=== PATIENT | female | born 1960 ===

== ENCOUNTER 2019-10-04 07:26 | Emergency (ER) | payer OTHER ==
--- NOTE | 2019-10-04 07:35 | UC ---
Abdominal Pain Female HPI - HPI Summary HPI Summary: CHIEF COMPLAINT and HPI: This is a healthy 59-year-old female who is a fourth yearthat student who complains of lower abdominal pain, nonradiating, for 3 days. 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 She has straw-colored, diarrhea multiple times a day and tells me that this consistent with cryptosporidium. She also comes in with the appropriate FDA prescription. Description of Pain: Intensity: 7/10 Location: abdomen Radiation:nonradiating Type:, cramping Variation:, continuous. VITAL SIGNS & SaO2 REVIEWED. Within normal limits unless noted here. NURSES NOTE REVIEWED. 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 Diarrhea x 3 days. abdominal cramps" - History of Current Complaint Stated Complaint: ABDOMINAL COMPLAINT Time Seen by Provider: 10/04/19 07:33 Allergies/Adverse Reactions: Allergies Allergy/AdvReac Type Severity Reaction Status Date / Time No Known Allergies Allergy Verified 10/04/19 07:51 PMH/Surg Hx/FS Hx/Imm Hx - Additional Past Medical History Additional PMH: PAST MEDICAL HISTORY- CHRONIC and RECURRENT HEALTH PROBLEM LIST REVIEWED.status post appendectomy. Information relevant to present complaint: none VISIT HISTORY REVIEWED. MEDICATIONS & ALLERGIES REVIEWED. HYPERTENSION STATUS:. Sometimes the patient has elevated blood pressure, but not as high as the reading today. Patient is on no antihypertensive medications. FAMILY HISTORY: patient denies significant medical history for family. 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 Eyes: Conjunctiva are clear. Pupils are equal and reactive to light and accommodation. Extra ocular muscle movement is intact. ENT: The hearing is grossly normal, the pharynx is normal, and the TMs are normal. There is no muffled or hoarse voice. No stridor. Neck: The neck is supple and there is no lymphadenopathy. Respiratory: The chest is non-tender to palpation and without crepitus. The lungs are clear, there are normal breath sounds, and there is no respiratory distress. No wheezes, rales or rhonchi. Cardiovascular: Heart sounds reveal a regular rate and rhythm. There are no clicks, rubs or murmurs. There are no carotid bruits or thrills. Circulation is grossly intact. Abdomen: The abdomen is soft and moderately tender in the lower quadrants. There is no evidence of peritoneal signs or acute abdomen. There is no organomegaly. Bowel sounds are present and within normal limits. No point tenderness at McBurneys point. No CVA tenderness. Musculoskeletal: Strength is intact. The patient moves all extremities. Neurological: The patient is alert. Motor and sensory are examination grossly intact. Speech is normal. Psychological: The patient displays age appropriate behavior, and is conversant. GCS=15. Skin: Negative for rashes. 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 She has straw-colored , diarrhea multiple times a day and tells me that this consistent with cryptosporidium. She also comes in with the appropriate FDA prescription. physical examination shows mild to moderate cramping in the lower abdomen without evidence of peritoneal signs. I discussed the patient's blood pressure reading with her. I will prescribe medication for cryptosporidium and if this is ineffective. She will return and have her stool tested. She will also follow up on her hypertensive reading. - Differential Dx/Diagnosis Differential Diagnosis: Other - colitis Provider Diagnosis: Cryptosporidium exposure Discharge ED - Sign-Out/Discharge Documenting (check all that apply): Patient Departure All imaging exams completed and their final reports reviewed: No Studies - Discharge Plan Condition: Stable Disposition: HOME Prescriptions: Nitazoxanide [Alinia] 500 mg PO BID #6 tablet MDD 2 Patient Education Materials: Acute Diarrhea (ED) Referrals: No Primary Care Phys,NOPCP [Primary Care Provider] - Additional Instructions: WE DISCUSSED: PLEASE SEEK CARE AT THE EMERGENCY DEPARTMENT IF SYMPTOMS WORSEN OR IF NEW SYMPTOMS DEVELOP. FOLLOW UP WITH YOUR PRIMARY CARE PHYSICIAN IF CONDITION CONTINUES BEYOND 3 DAYS WITHOUT IMPROVEMENT. YOUR DIAGNOSIS IS: cryptosporidium YOUR PRESCRIPTION RECOMMENDATION IS: nitazoxanide (Alinia); twice a day for 3 days OTHER INSTRUCTIONS: Hypertension Discharge Instructions: Your blood pressure reading today was 153/95, indicating HYPERTENSION. Follow- up with your primary care provider within 4 weeks for blood pressure check and appropriate recommendations and treatment, as needed. FOR PAIN AND/OR SLEEP: For pain: Ibuprofen (Motrin and other brand names) 400-600mg PLUS acetaminophen (Tylenol and other brand names) 500mg - 1000mg every 8 hours. - Billing Disposition and Condition Condition: STABLE Disposition: Home
== END 2019-10-04 08:33 | disposition home or self-care (01) ==
LOC: UCEAST 07:26
DX: Z20.09 Contact with and (suspected) exposure to other intestinal infectious diseases (principal); R10.30 Lower abdominal pain, unspecified; R11.2 Nausea with vomiting, unspecified
CPT/HCPCS: 99202; G0463

== ENCOUNTER 2020-01-13 12:27 | Emergency (ER) | payer OTHER ==
[2020-01-13 12:38] VITALS: BP 154/93
--- NOTE | 2020-01-13 13:07 | UC ---
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 Patient states that she was examining the cat when it bit her. The cat was last vaccinated for rabies in 2013. The animal is able to be quarantined. Patient's tetanus is up- to-date and has been vaccinated for rabies with positive titers. Denies fever, chills, joint pain, drainage, decreased range of motion, numbness, or tingling. - History of Current Complaint Chief Complaint: UCBiteInjury Stated Complaint: CAT BITE Time Seen by Provider: 01/13/20 12:52 Hx Obtained From: Patient Pain Intensity: 0 - Allergies/Home Medications Allergies/Adverse Reactions: Allergies Allergy/AdvReac Type Severity Reaction Status Date / Time No Known Allergies Allergy Verified 01/13/20 12:38 Home Medications: Home Medications Amoxicillin/Clavulanate TAB* [Augmentin TAB 875*] 875 mg PO BID 5 Days #10 tab 01/13/20 [Rx] PMH/Surg Hx/FS Hx/Imm Hx Previously Healthy: Yes - Denies significant PMH - Surgical History Surgical History: Yes Surgery Procedure, Year, and Place: T &A - Family History Known Family History: Positive: Non-Contributory - Social History Occupation: Student Lives: With Family Alcohol Use: None Substance Use Type: None Smoking Status (MU): Never Smoked Tobacco - Immunization History Most Recent Tetanus Shot: 4 years ago Review of Systems All Other Systems Reviewed And Are Negative: Yes Constitutional: Negative: Fever, Chills Skin: Positive: Other - See HPI Respiratory: Positive: Negative Gastrointestinal: Positive: Negative Genitourinary: Positive: Negative Motor: Negative: Weakness Neurovascular: Negative: Decreased Sensation Musculoskeletal: Negative: Arthralgia, Decreased ROM Neurological/Mental Status: Positive: Negative Is Patient Immunocompromised?: No Physical Exam - Summary Physical Exam Summary: GENERAL APPEARANCE: Alert and cooperative overweight female appears to be in no acute distress. CARDIAC: Normal S1 and S2. No S3, S4 or murmurs. Rhythm is regular. There is no peripheral edema, cyanosis or pallor. Extremities are warm and well perfused. Capillary refill is less than 2 seconds. Peripheral pulses intact. LUNGS: Clear to auscultation without rales, rhonchi, wheezing or diminished breath sounds. ABDOMEN: Positive bowel sounds. Soft, nondistended, nontender. No guarding or rebound. No masses or hepatosplenomegally. MUSKULOSKELETAL: ROM intact to all extremities. No joint erythema or tenderness. Normal muscular development. Normal gait. EXTREMITIES: 2 puncture wounds with bleeding controlled to the dorsal web space between the thumb and index finger of the left hand with 2 more superficial puncture wounds to the proximal dorsal hand. Mild erythema and edema of the surrounding tissues. Circulation and sensation intact. SKIN: Skin normal color, texture and turgor. 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 Patient states that she was examining the cat when it bit her. The cat was last vaccinated for rabies in 2013. The animal is able to be quarantined. Patient's tetanus is up- to-date and has been vaccinated for rabies with positive titers. Denies fever, chills, joint pain, drainage, decreased range of motion, numbness, or tingling. Afebrile. Hypertensive otherwise vital signs stable. Patient had 2 puncture wounds with bleeding controlled to the dorsal web space between the thumb and index finger of the left hand with 2 more superficial puncture wounds to the proximal dorsal hand with mild erythema and edema of the surrounding tissues ( see diagram). The wounds were cleansed with soap and water, antibiotic ointment and a clean gauze dressing was applied by the RN. We'll place the patient on Augmentin 875 mg twice a day 5 days for infection prophylaxis. She is to follow up with hand surgery in 3-5 days if there is any complications. Anticipatory guidance, wound care, and warning symptoms were reviewed with the patient. Verbalizes understanding and agrees with plan of care. - Differential Dx/Diagnosis Differential Diagnosis/HQI/PQRI: Puncture, Rabies Exposure, Superficial Infection Provider Diagnosis: Cat bite of left hand Discharge ED - Sign-Out/Discharge Documenting (check all that apply): Patient Departure All imaging exams completed and their final reports reviewed: No Studies - Discharge Plan Condition: Stable Disposition: HOME Prescriptions: Amoxicillin/Clavulanate TAB* [Augmentin TAB 875*] 875 mg PO BID 5 Days #10 tab Patient Education Materials: Animal Bite (ED) Referrals: No Primary Care Phys,NOPCP [Primary Care Provider] - No Donohue MD [Medical Doctor] - 3 Days (Follow up in 3-5 days for recheck of wound especially if no improvement in symptoms.) Additional Instructions: Start Augmentin 875 mg 1 tablet twice daily for 5 days to help prevent infection. Clean the wound with a mild soap and water at least once a day. Apply some antibiotic ointment and cover with a bandage. This should be changed at least once a day or any time the dressing becomes wet or soiled. Use acetaminophen (Tylenol) or ibuprofen (Advil, Motrin) according to directions as needed for pain. Watch for signs of infection including fever greater than 100.5 F, severe pain not managed with pain medication, redness that spreads, swelling of the hand/ fingers, red streaking up the arm, or pus draining from the wound. Seek immediate medical attention should any of these occur. Follow up with orthopedic surgery in 3-5 days especially if no improvement in symptoms. Call for appointment. - Billing Disposition and Condition Condition: STABLE Disposition: Home
== END 2020-01-13 13:24 | disposition home or self-care (01) ==
LOC: UCEAST 12:27
DX: S61.452A Open bite of left hand, initial encounter (principal); W55.01XA Bitten by cat, initial encounter; Y92.9 Unspecified place or not applicable
CPT/HCPCS: 99212; G0463